=== PATIENT | female | born 1985 | race Caucasian/White ===

== ENCOUNTER 2016-08-17 08:07 | Emergency (ER) | payer OTHER | END 2016-08-17 09:54 | disposition home or self-care (01) | LOC: D.ER 08:07 | DX: M54.9 Dorsalgia, unspecified (principal); R10.9 Unspecified abdominal pain; F90.9 Attention-deficit hyperactivity disorder, unspecified type ==

== ENCOUNTER 2016-10-08 09:34 | Emergency (ER) | payer OTHER | END 2016-10-08 11:15 | disposition home or self-care (01) | LOC: D.ER 09:34 | DX: M54.5 Low back pain (principal); M51.36 Other intervertebral disc degeneration, lumbar region; F17.200 Nicotine dependence, unspecified, uncomplicated ==

== ENCOUNTER 2019-01-09 23:21 | Emergency (ER) | payer MEDICAID ==
[~2019-01-09] VITALS: Ht 175.3 cm; Wt 102.3 kg
[2019-01-09 23:40] VITALS: Ht 175.3 cm; Wt 102.3 kg
[2019-01-09] MEDS ORDERED: ADDERALL 30 MG30 MG PO (23:42)
[2019-01-10 00:22] LABS: BASOPHILS 0.3 % (0-2); EOSINOPHILS 2.5 % (0-7); HEMATOCRIT 37.6 % (36.0-48.0); HEMOGLOBIN 12.6 g/dL (12-16); IMMATURE GRANULOCYTES 0.2 % (0-5); LYMPHOCYTES 31.3 % (15-50); MCH 30.6 pg (26.0-34.0); MCHC 33.5 g/dL (31.0-37.0); MCV 91.3 fL (80.0-100.0); MEAN PLATELET VOLUME 9.1 fL (7.4-10.4); MONOCYTES 6.7 % (2-11); PLATELET COUNT 246 10x3/uL (130-400); RBC 4.12 10x6/uL (4.00-5.40); RDW 12.5 % (11.5-14.5); WBC 9.7 10x3/uL (4.8-10.8)
[2019-01-10 00:39] LABS: ALBUMIN 3.6 g/dL (3.4-5.0); ANION GAP 12.5 mmol/L (8-16); BILIRUBIN - TOTAL 0.18 mg/dL (0.2-1.3); CALCIUM 8.8 mg/dL (8.5-10.1); CARBON DIOXIDE 27.5 mmol/L (21.0-32.0); PROTEIN - SERUM 6.9 g/dL (6.4-8.2)
[2019-01-10] MEDS ORDERED: NAPROSYN500 MG PO (00:39)
[2019-01-10] MEDS ORDERED: CLEOCIN HCL300 MG PO (00:39)
[2019-01-10 01:15] VITALS: BP 143/101
== END 2019-01-10 01:15 | disposition home or self-care (01) ==
LOC: D.ER 23:21
PROVIDERS: Family Medicine
DX: K02.9 Dental caries, unspecified (principal); K04.7 Periapical abscess without sinus; F17.200 Nicotine dependence, unspecified, uncomplicated